=== PATIENT | male | born 1965 | race Caucasian/White ===

== ENCOUNTER 2018-09-28 12:13 | Day surgery (SDC) | payer BC ==
[~2018-09-28] VITALS: Ht 177.8 cm; Wt 68.9 kg
[2018-09-28 14:18] VITALS: Ht 177.8 cm; Wt 68.9 kg
[2018-09-28 14:45] VITALS: BP 152/84; PULSE 82; RESP 16
--- NOTE | 2018-09-28 14:50 | PREAC ---
Date/Time of Note Date/Time of Note DATE: 09/28/18 TIME: 14:47 Anesthesia Eval and Record Evaluation Time Pre-Procedure Interview DATE: 09/28/18 TIME: 14:47 Age 53 Sex male NPO: 8 hrs Preoperative diagnosis Reflux, colon screening Planned procedure EGD, Colonscopy Past Medical History Past Medical History: Includes Cardio: HTN, Dyslipidemia Surgery & Anesthesia Issues No known issue Meds Anticoagulation: No Beta Chandrakant within 24 hr: No Reason Beta Chandrakant not given: Pt. not on B-Chandrakant Reported Medications [None] No Conflict Check 09/28/18 Meds reviewed: Yes Allergies Coded Allergies: No Known Allergy (Unverified , 09/28/18) Allergies Reviewed: Yes Labs/Studies Labs Reviewed: Reviewed by anesthesiologist test: N/A Studies: ECG Pre-procedure Exam Last vitals BP:124/56, P:78, Spo2:100%, T:98,8 Airway: Adequate mouth opening, Adequate thyromental dist Mallampati: Mallampati II Teeth: Normal Lung: Normal Heart: Normal ASA Physical Status ASA physical status: 2 Emergency: None Planned Anesthetic General/MAC: MAC Planned Pain Management Parenteral pain med Pre-operative Attestations Prior to commencing anesthesia and surgery, the patient was re-evaluated, there was verification of: *The patient's identity *The results of appropriate recent lab work and preoperative vital signs *The above evaluation not changing prior to induction *Anesthetic plan, risk benefits, alternative and complications discussed with patient/family; questions answered; patient/family understands, accepts and wishes to proceed. AMIE HERNANDEZ MD September 28, 2018 14:50
[2018-09-28] MEDS ORDERED: PROPOFOL 60 ML ONE (14:59)
[2018-09-28] MEDS ORDERED: LIDOCAINE 2% (SDV) 5 ML INJ ONE (14:59)
--- NOTE | 2018-09-28 15:34 | PAC ---
Date/Time of Note Date/Time of Note DATE: 09/28/18 TIME: 15:34 Post-Anesthesia Notes Post-Anesthesia Note Activity: WNL Respiratory function: WNL Cardiovascular function: WNL Mental status: Baseline Pain reasonably controlled: Yes Hydration appropriate: Yes Nausea/Vomiting absent: Yes Comments BP:122/67, P;78, Spo2:100%, T:98,9 AMIE HERNANDEZ MD September 28, 2018 15:34
[2018-09-28 16:18] VITALS: BP 148/94; PULSE 64; RESP 16
== END 2018-09-28 16:06 | disposition home or self-care (01) ==
LOC: GIL 12:13
PROVIDERS: ATTEND Internal Medicine Gastroenterology
DX: K92.1 Melena (principal); D12.5 Benign neoplasm of sigmoid colon; K29.80 Duodenitis without bleeding
CPT/HCPCS: 43239; 45380; 88305; Z7610